=== PATIENT | female | born 1950 | race American Indian/Alaskan Native ===

== ENCOUNTER 2017-12-23 09:45 | Outpatient (CLI) | payer MEDICARE ==
--- NOTE | 2017-12-23 11:39 | Ultrasound Report ---
ULTRASOUND ABDOMEN COMPLETE: TECHNIQUE: Transabdominal ultrasound with color Doppler interrogation. HISTORY: epigastric pain. COMPARISON: none. FINDINGS: LIVER: Normal. BILIARY SYSTEM: Normal. PANCREAS: Normal. SPLEEN: Normal. KIDNEYS: Normal. AORTA/IVC: Normal. ASCITES: None. IMPRESSION: Unremarkable exam.
== END 2017-12-23 09:46 | disposition home or self-care (01) ==
LOC: US 09:45
PROVIDERS: ATTEND Internal Medicine Gastroenterology
DX: K30 Functional dyspepsia (principal); I10 Essential (primary) hypertension; K21.9 Gastro-esophageal reflux disease without esophagitis; E78.00 Pure hypercholesterolemia, unspecified; F32.9 Major depressive disorder, single episode, unspecified; F41.9 Anxiety disorder, unspecified
CPT/HCPCS: 76700

== ENCOUNTER 2018-01-13 08:20 | Outpatient (CLI) | payer MEDICARE ==
[2018-01-13] MEDS ORDERED: KINEVAC IV NR (09:30)
--- NOTE | 2018-01-13 11:28 | Nuclear Medicine Report ---
HIDA WITH CCK INDICATION: Epigastric abdominal pain. COMPARISON: None similar. FINDINGS: Dynamic right upper quadrant imaging performed in the anterior projection over 60 minutes following uneventful intravenous administration of 5 mCi of Technetium 99m Choletec. Prompt and homogenous hepatic radiotracer uptake with subsequent washout seen with gallbladder activity noted at 10 minutes. Bowel activity seen at 60 minutes and on imaging carried out to 90 minutes. Subsequently, 1.33 mcg of cholecystokinin infused intravenously over a period of 3 minutes with patient's symptoms of pain and cramping reproduced. The calculated ejection fraction is 94% (normal greater than 35%). CONCLUSION: No evidence of cholecystitis. Patient's symptoms though reproduced following CCK. Hyperkinetic gallbladder may be correlated for clinically in an appropriate setting. Thank you for the opportunity to participate in this patient's care.
== END 2018-01-13 08:21 | disposition home or self-care (01) ==
LOC: NM 08:20
PROVIDERS: ATTEND Internal Medicine Gastroenterology
DX: K21.9 Gastro-esophageal reflux disease without esophagitis (principal)
CPT/HCPCS: 78227; A9537; J2805